=== PATIENT | male | born 1975 | race Caucasian/White ===

== ENCOUNTER 2017-01-20 07:08 | Emergency (ER) | payer OTHER ==
[~2017-01-20] VITALS: Ht 180.3 cm; Wt 90.7 kg
[~2017-01-20 07:08] MED LIST: ADVIL LIQUI-GE200 MG PO
--- NOTE | 2017-01-20 22:05 | EKG ---
[facility] [address] [facility] [place] [address] Signed Sinus bradycardia with sinus arrhythmia Low voltage QRS Borderline ECG No previous ECGs available Confirmed by MIGUEL LUIS MD ([id number]) on 01/20/2017 10:04:57 PM Electronically Signed By: MIGUEL LUIS MD 01/20/17 2205 PATIENT NAME: DEON MILLER Electrocardiogram DATE OF : 73 PHYSICIAN: MIGUEL LUIS MD REPORT #: [id number] REPORT IS CONFIDENTIAL AND NOT TO BE RELEASED WITHOUT AUTHORIZATION
== END 2017-01-20 09:26 | disposition home or self-care (01) ==
LOC: ED 07:08
DX: T67.1XXA Heat syncope, initial encounter (principal); F17.200 Nicotine dependence, unspecified, uncomplicated
CPT/HCPCS: 73030; 80048; 80053; 81001; 84484; 85025; 87081; 87880; 93005; 93010; 99284; G0480

== ENCOUNTER 2017-04-22 22:47 | Emergency (ER) | payer SELFPAY ==
[~2017-04-22] VITALS: Ht 180.3 cm; Wt 90.7 kg
== END 2017-04-23 05:24 | disposition home or self-care (01) ==
LOC: ED 22:47
DX: F10.129 Alcohol abuse with intoxication, unspecified (principal); F15.10 Other stimulant abuse, uncomplicated; F17.200 Nicotine dependence, unspecified, uncomplicated
CPT/HCPCS: 36415; 80053; 81001; 85025; 99283; G0480; J7030